=== PATIENT | female | born 1990 | race Caucasian/White ===

== ENCOUNTER 2017-08-23 10:46 | Emergency (ER) | payer BC, OTHER ==
[~2017-08-23] VITALS: Ht 167.6 cm; Wt 113.4 kg
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
--- NOTE | 2017-08-23 11:07 | NUR ---
DR OROZCO AT BEDSIDE FOR EVAL.
--- NOTE | 2017-08-23 11:22 | NUR ---
PT TO RADIOLOGY FOR LUMBAR SPINE CT SCAN VIA [facility].
--- NOTE | 2017-08-23 14:14 | NUR ---
PT STATES FEELING MUCH BETTER. ABLE TO AMBULATED GOING TO THE BATHROOM. Patient discharged to home in stable condition. Written and verbal after care instructions given. Patient verbalizes understanding of instruction.IV removed. Catheter intact and site benign. Pressure and 4x4 applied to site. No bleeding noted.
[2017-08-23 14:16] VITALS: BP 130/70
== END 2017-08-23 14:17 | disposition home or self-care (01) ==
LOC: ER 10:47
DX: M54.5 Low back pain (principal); F17.210 Nicotine dependence, cigarettes, uncomplicated
CPT/HCPCS: 72110-TC; A4606; J1170; J1885; Z7610

== ENCOUNTER 2017-08-24 11:01 | Emergency (ER) | payer OTHER ==
[~2017-08-24] VITALS: Ht 167.6 cm; Wt 116.1 kg
--- NOTE | 2017-08-24 11:10 | NUR ---
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 DENIES TRAUMA. SEEN BY MD FOR ANNIA, XIANG NOTED. VSS. SAFETY AND COMFORT MEASURES PROVIDED. WILL MONITOR.
--- NOTE | 2017-08-24 12:40 | NUR ---
PT MEDICATED ORDERED.
--- NOTE | 2017-08-24 12:45 | NUR ---
Pt ambulatory with a steady gait.
--- NOTE | 2017-08-24 12:59 | NUR ---
Patient discharged to home in stable condition. Written and verbal after care instructions given. Patient verbalizes understanding of instruction.
[2017-08-24 13:00] VITALS: BP 136/85
== END 2017-08-24 13:01 | disposition home or self-care (01) ==
LOC: ER 11:02
DX: M54.5 Low back pain (principal); F17.210 Nicotine dependence, cigarettes, uncomplicated; G89.29 Other chronic pain
CPT/HCPCS: A4606; J1170; J1885; Z7610